=== PATIENT | male | born 1955 | race Caucasian/White ===

== ENCOUNTER 2019-09-04 10:01 | Emergency (ER) | payer OTHER ==
[~2019-09-04] VITALS: Ht 172.7 cm; Wt 86.2 kg
[2019-09-04] MEDS ORDERED: METF500 PO (10:20)
[2019-09-04] MEDS ORDERED: AMLO10 PO (10:21)
[2019-09-04] MEDS ORDERED: ASPI81CH PO (10:21)
[2019-09-04] MEDS ORDERED: OMEPRAZOLE20 MG PO (10:21)
== END 2019-09-04 11:15 | disposition home or self-care (01) ==
LOC: ER 10:01
DX: M79.81 Nontraumatic hematoma of soft tissue (principal); E11.9 Type 2 diabetes mellitus without complications; I10 Essential (primary) hypertension; I25.2 Old myocardial infarction; Z87.891 Personal history of nicotine dependence; Z79.899 Other long term (current) drug therapy; Z79.84 Long term (current) use of oral hypoglycemic drugs; Z79.82 Long term (current) use of aspirin
CPT/HCPCS: 73630; 99283-25

== ENCOUNTER 2019-12-31 14:41 | Inpatient (IN) | payer OTHER ==
[~2019-12-31] VITALS: Ht 172.7 cm; Wt 91.0 kg
[~2019-12-31 14:41] MED LIST: AMLO10 PO; OMEPRAZOLE20 MG PO
[2019-12-31] MEDS ORDERED: LOSARTAN POTAS100 M1 PO (15:07)
[2019-12-31] MEDS ORDERED: AMLO5 PO (15:07)
[2019-12-31] MEDS ORDERED: OMEP20ER PO (15:08)
[2019-12-31] MEDS ORDERED: Aspir 8181 MG PO (15:08)
[2019-12-31] MEDS ORDERED: Metamucil Smooth1 EA PO (15:08)
[2019-12-31] MEDS ORDERED: ROSU5 PO (15:08)
[2019-12-31] MEDS ORDERED: METF500C PO ×2 (15:08→17:22)
[2019-12-31 15:36] LABS: Alanine Aminotransfer (ALT/SGP 46 U/L (12-78); Albumin, Blood 3.7 g/dL (3.4-5.0); Alk Phos 62 U/L (50-136); Anion Gap 8 mmol/L (6-16); Aspartate Aminotrans (AST/SGOT 22 U/L (12-37); Bilirubin, Total 0.2 mg/dL (0.1-1.0); Blood Urea Nitrogen 19 mg/dL (8-24); Bun/Creatinine Ratio 17.4 (12.0-20.0); CO2, Blood 21 mmol/L (21-32); Calcium, Blood 8.8 mg/dL (8.5-10.1); Chloride, Blood 110 mmol/L (98-108); Creatinine, Blood 1.09 mg/dL (0.60-1.20); Globulin, Blood 3.7 g/dL (2.2-4.0); Glomerular Filtration Rate >60 (60-); Glucose, Blood 224 mg/dL (70-99); Potassium, Blood 3.9 mmol/L (3.5-5.5); Sodium, Blood 139 mmol/L (136-145); Total Protein, Blood 7.4 g/dL (6.4-8.2); Troponin I 0.146 ng/mL (0.000-0.040)
[2019-12-31 15:39] LABS: BASOPHILS ABSOLUTE AUTO 0.03 K/mm3 (0.00-0.23); BASOPHILS PERCENT AUTO 0 % (0-2); EOSINOPHILS ABSOLUTE AUTO 0.11 K/mm3 (0.00-0.68); EOSINOPHILS PERCENT AUTO 1 % (0-6); Hematocrit 40.4 % (37.0-53.0); IMMATURE GRAN ABSOLUTE AUTO 0.03 K/mm3 (0.00-0.10); IMMATURE GRAN PERCENT AUTO 0 % (0-1); LYMPHOCYTES ABSOLUTE AUTO 1.77 K/mm3 (0.84-5.20); LYMPHOCYTES PERCENT AUTO 22 % (21-46); MONOCYTES ABSOLUTE AUTO 0.54 K/mm3 (0.16-1.47); MONOCYTES PERCENT AUTO 7 % (4-13); Mean Corpuscular HGB Conc 34.7 g/dL (31.5-36.5); Mean Corpuscular Volume 87 fL (80-100); NEUTROPHILS ABSOLUTE AUTO 5.61 K/mm3 (1.96-9.15); NEUTROPHILS PERCENT AUTO 69 % (41-73); RDW Coefficient Variation 12.6 % (11.7-14.2); RDW Standard Deviation 39.8 fL (35.1-46.3); Red Blood Cell Count 4.67 M/mm3 (4.30-5.90); White Blood Cell Count 8.09 K/mm3 (4.00-11.30)
[2019-12-31 16:01] LABS: Platelet Count 183 K/mm3 (150-400)
[2019-12-31 17:22] LABS: CHOL/HDL RATIO 5.3; Cholesterol 142 mg/dL (50-200); HDL Cholesterol 27 mg/dL (>39); LDL/HDL RATIO 2.4; Low Density Lipoprotein Chol 66 mg/dL (0-110); Triglycerides 247 mg/dL (30-160); Very Low Density Lipoprot Chol 49 mg/dL (6-32)
[2019-12-31] MEDS ORDERED: Fish Oil 10001000 MG PO (17:24)
[2019-12-31 18:02] LABS: International Normalized Ratio 1.06; Prothrombin Time Results 11.3 Sec (9.7-11.5)
--- NOTE | 2019-12-31 19:15 | NUR ---
SHIFT SUMMARY PT ARRIVED TO FLOOR FROM ED VIA STRETCHER AROUND 1809. PT [id number], VSS. ADMITTED FOR C/O CHEST PAIN; ELEVATED TNI. PT CURRENTLY DENIES ANY C/O CHEST PAIN/PRESSURE, SOB, OR PALPITATIONS. PLAN TO MONITOR TNI, OBTAIN ECHO & CARDIO CONSULT, START HEPARIN GTT. PT IS INDEPENDENT IN ROOM. INITIAL ADMISSION SCREENING, MED REC, & HX COMPLETED. REPORT GIVEN TO ONCOMING RN.
--- NOTE | 2019-12-31 19:50 | NUR ---
ASSUMED CARE Assumed care of pt at approx 1900 from CYNDI Araiza. Pt presents sitting on edge of bed, breathing even and unlabored, speaking on the phone with spouse. VSS. Pt denies chest pain or pressure, denies shortness of breath or difficulty breathing. Pt up independantly in room, steady gait, no dyspnea with excertion. Heprin gtt infusing 19.5 ml/hr, verified with CYNDI Macario. infusing into right hand, site wnl. Pt is overall alert and oriented, in no apparent sign of distress. Cardiology consulted and pt aware of NPO status after midnight. Will continue to monitor. See admission assessment for detailed systems assessment.
--- NOTE | 2020-01-01 | NUR ---
Pt NPO at this time.
--- NOTE | 2020-01-01 05:33 | NUR ---
Shift Summary Pt with continued hypertension (SBP>160) until approx 0015 with administration of labatolol PRN per orders. Since then, SBP has remains <160. Last BP 127/86. All other VSS. Pt remains alert and oriented, calling appropriately to make needs known, ambulates to bathroom for voiding with steady gait, calls for assistance with maintaining lines with ambulation. Pt is calm and cooperative, complained of sinus pressure, provider called and orders recieved. Relief noted by pt. Heprin gtt infusing at 14 u/kg/hr per orders. pt denies chest pain and pressure all shift. Cardiology to see pt this AM. NPO since midnight. Will continue to monitor
--- NOTE | 2020-01-01 08:40 | NUR ---
DR. FRIED AT BEDSIDE TO DISCUSS PLAN FOR ANGIOGRAM TODAY. CONSENT FORM SIGNED & WITNESSED. PT REMAINS NPO SINCE MIDNIGHT. HEPARIN GTT D/C'D PER MD ORDER. PT OPEN FOR ECHO. AT BEDSIDE. VSS. WILL CONTINUE TO MONITOR UNTIL PT LEAVES FOR ANGIOGRAM.
--- NOTE | 2020-01-01 10:31 | NUR ---
Pt not in room; none of staff aware of pt's departure. Confirmed with Lizeth in heart center at this time that the pt was taken to custodial laborer. Notified Lizeth that the pt had not yet received his morning medications, including the loading dose of plavix which was just received from the pharmacy via tube system.
--- NOTE | 2020-01-01 10:42 | NUR ---
Echocardiogram completed.
--- NOTE | 2020-01-01 12:12 | NUR ---
PT RETURNED TO FLOOR FROM HEART CENTER S/P ANGIOGRAM. VSS. NO S/S OF DISTRESS. PT DENIES ANY C/O CHEST PAIN/PRESSURE, SOB, OR PALPITATIONS. ATTEMPTED TO GO THROUGH RIGHT RADIAL SITE, BUT UNSUCCESSFUL; TR BAND PRESENT TO RIGHT RADIAL SITE W/ ARMBOARD IN PLACE; SITE WNL; POSITIVE PULSES & NORMAL COLOR/SENSATION; 8CC OF AIR IN BAND. SECOND SITE SUCCESSFUL THROUGH RIGHT GROIN; SITE WNL; POSITIVE PULSES & NORMAL COLOR/SENSATION. PT RESTING SUPINE IN BED. PLAN TO BE TRANSFERRED TO [facility] FOR CABG WHEN BED AVAILABLE. WILL CONTINUE TO MONITOR.
--- NOTE | 2020-01-01 14:27 | NUR ---
SHIFT SUMMARY/TRANSFER NO ACUTE CHANGES THROUGHOUT SHIFT. VS REMAIN STABLE. 8CC OF AIR WERE REMOVED FROM TR BAND AT RIGHT RADIAL ACCESS SITE; GAUZE & TEGADERM PLACED AT SITE; NO S/S OF COMPLICATIONS NOTED; POSITIVE PULSE, NORMAL SENSATION/COLOR. RIGHT GROIN ACCESS SITE REMAINS WNL; NO S/S OF COMPLICATIONS; POSITIVE PULSES & NORMAL COLOR/SENSATION. PT DENIED ANY C/O SOB, CHEST PAIN/PRESSURE, OR PALPITATIONS THROUGHOUT SHIFT. REPORT WAS CALLED TO CYNDI WINKLER AT [facility] AT [facility] WHERE PT IS SCHEDULED TO HAVE CABG. FAMILY WAS UPDATED ON PLAN OF CARE. PT TRANSFERRED TO [facility]. TRANSPORTED OFF UNIT VIA STRETCHER W/ RN & MONITOR IN STABLE CONDITION.
== END 2020-01-01 14:27 | disposition short-term general hospital (02) | DRG 282 ==
LOC: ER 14:41 → PCU 14:42
PROVIDERS: Emergency Medicine; ADMIT Family Medicine
PROC: 4A023N7 Measurement of Cardiac Sampling and Pressure, Left Heart, Percutaneous Approach (ICD-10-PCS; principal; 2020-01-01)
PROC: B215YZZ Fluoroscopy of Left Heart using Other Contrast (ICD-10-PCS; 2020-01-01)
PROC: B211YZZ Fluoroscopy of Multiple Coronary Arteries using Other Contrast (ICD-10-PCS; 2020-01-01)
DX: I21.4 Non-ST elevation (NSTEMI) myocardial infarction (principal); I25.10 Atherosclerotic heart disease of native coronary artery without angina pectoris; I10 Essential (primary) hypertension; E78.5 Hyperlipidemia, unspecified; E11.9 Type 2 diabetes mellitus without complications; Z95.5 Presence of coronary angioplasty implant and graft; Z79.82 Long term (current) use of aspirin; Z87.891 Personal history of nicotine dependence; I25.2 Old myocardial infarction
CPT/HCPCS: 36415; 71046; 80053; 80061; 82947; 84484; 85025; 85610; 85730; 86850; 86900; 86901; 93005; 93010; 93306; 93458; 96365; 96366; 96375; 96376; 99152; 99153; 99285-25; A9270; A9270-GY; C1769; C1894; G0278; G0378; J0360; J1644; J2250; J3010; J7030; Q9967